=== PATIENT | female | born 1970 | race Two or more races ===

== ENCOUNTER 2018-11-02 13:14 | Emergency (ER) | payer SELFPAY ==
[~2018-11-02] VITALS: Ht 157.5 cm; Wt 86.8 kg
[2018-11-02 13:38] VITALS: BP 166/85
--- NOTE | 2018-11-02 13:43 | NUR ---
FIRST CONTACT WITH PT. PT C/O LEFT GREAT TOE/NAIL PAIN, REDNESS, TENDER SINCE LAST WK, DENIES INJURY. PT'S AOX4. RESPS EVEN AND UNLABORED. TURKISH SPEAKING.
[2018-11-02] MEDS ORDERED: NEOSPORIN OINT. PKT 1 PACKET ONE ×2 (13:46→14:47)
[2018-11-02] MEDS ORDERED: LIDOCAINE-MPF 1%, 5ML INFIL ONE (14:00)
[2018-11-02] MEDS ORDERED: LIDOCAINE-MPF 1%, 2ML ONE (14:27)
--- NOTE | 2018-11-02 14:55 | NUR ---
PT GIVEN DC INSTRUCTIONS AND SCRIPTS. PT EDUCATED REGARDING DC MEDICATIONS. PT'S AOX4. RESPS EVEN AND UNLABORED. NO ACUTE DISTRESS AT DC.
== END 2018-11-02 14:56 | disposition home or self-care (01) ==
LOC: ED 14:50
DX: L03.032 Cellulitis of left toe (principal); L60.0 Ingrowing nail; I10 Essential (primary) hypertension
CPT/HCPCS: 10060; 99283